=== PATIENT | female | born 1945 | race Two or more races ===

== ENCOUNTER 2024-07-15 16:39 | Emergency (ER) | payer OTHER ==
[~2024-07-15] VITALS: Ht 160 cm; Wt 77.1 kg
[2024-07-15] MEDS ORDERED: METOPROLOL SUCC25 MG PO (18:02)
[2024-07-15] MEDS ORDERED: SYNTHROID50 MCG PO (18:02)
[2024-07-15] MEDS ORDERED: ZESTRIL20 MG PO (18:02)
[2024-07-15] MEDS ORDERED: ONDANSETRON HCL 2 MG/ML VIAL IV ONE (20:00)
[2024-07-15] MEDS ORDERED: FAMOtidine 10 MG/ML (4ML VIAL) IV ONE (20:00)
[2024-07-15] MEDS ORDERED: FAMOTIDINE/PF 20 MG/2 ML VIAL ONE (20:53)
[2024-07-15] MEDS ORDERED: ONDANSETRON HCL 2 MG/ML VIAL ONE (20:53)
[2024-07-15 21:30] LABS: BASO % 0.6 % (0.1-1.2); EOS # 0.21 (0.04-0.54); EOS % 1.9 % (0.7-7.0); HEMATOCRIT 34.6 % (34.1-44.9); HEMOGLOBIN 11.9 g/dL (11.2-15.7); LYMPH # 3.06 (1.18-3.74); LYMPH % 28.2 % (19.3-53.1); MEAN CORPUSCULAR HEMOGLOBIN 31.6 pg (25.6-32.2); MONO # 1.13 (0.24-0.82); MONO % 10.4 % (4.7-12.5); NEUT # 6.36 (1.56-6.13); NEUT % 58.6 % (34.0-71.1); PLATELET COUNT 219 K/uL (163-369); RED BLOOD COUNT 3.76 M/uL (3.93-5.22); RED CELL DISTRIBUTION WIDTH 11.9 % (11.6-14.4)
[2024-07-15 22:13] LABS: ALBUMIN 3.8 gm/dL (3.4-5.0); BILIRUBIN TOTAL 0.36 mg/dL (0.3-1.2); CALCIUM 9.1 mg/dL (8.5-10.1); CREATININE SERUM 1.17 mg/dL (0.55-1.02); GFR 44.39; GLOBULINA 3.4 G/DL (2.4-3.5); POTASSIUM 4.8 mEq/L (3.5-5.1); TOTAL PROTEIN 7.2 gm/dL (6.4-8.2)
[2024-07-15] MEDS ORDERED: ZOFRAN8 MG PO (23:47)
[2024-07-15] MEDS ORDERED: ACID REDUCER20 M1 PO (23:47)
[2024-07-15] MEDS ORDERED: PEPCID AC20 MG PO (23:47)
== END 2024-07-16 00:13 | disposition home or self-care (01) ==
LOC: ER 16:39
PROVIDERS: Preventive Medicine Public Health & General Preventive Medicine
DX: R10.13 Epigastric pain (principal); I10 Essential (primary) hypertension; E03.8 Other specified hypothyroidism; K80.20 Calculus of gallbladder without cholecystitis without obstruction
CPT/HCPCS: 36415; 96365; 99282; J2405; J3490